=== PATIENT | male | born 1955 | race Caucasian/White ===

== ENCOUNTER 2016-09-13 07:20 | Inpatient (IN) | payer MEDICARE, MEDICAID ==
[2016-09-13] MEDS ORDERED: Clindamycin Phosphate in D5W 600 MG in Premix Bag 1 BAG IV ONE ×2 (08:04)
[2016-09-13] MEDS ORDERED: Levalbuterol HCl 1.25 MG/3 ML Neb NEB ONE (08:18)
[2016-09-13] MEDS ORDERED: LORazepam 2 MG/ML Syringe ONE (08:22)
[2016-09-13] MEDS ORDERED: methylPREDNISolone Sodium Succinate 125 MG/2 ML SDV IVPUSH SCH (08:30)
[2016-09-13] MEDS ORDERED: Levofloxacin/Dextrose 5%-Water 500 MG in Premix Bag 1 BAG IV SCH (08:30)
[2016-09-13] MEDS ORDERED: Clindamycin Phosphate in D5W 600 MG in Premix Bag 1 BAG IV SCH ×2 (08:30)
[2016-09-13] MEDS: Levalbuterol HCl 1.25 MG/3 ML Neb NEB SCH ×4 (08:30→20:11)
[2016-09-13] MEDS ORDERED: LORazepam 2 MG/ML Syringe IVPUSH ONE (08:45)
--- NOTE | 2016-09-13 08:51 | EDM.PDOC ---
ED HISTORY OF PRESENT ILLNESS - General Chief Complaint: Respiratory Problem Stated Complaint: aspiration pneumonia Time Seen by Provider: 09/13/16 07:50 Source of Information: Reports: EMS, Family, half-way records History Limitations: Reports: Altered mental status, Combative/threatening, Physical impairment - History of Present Illness INITIAL COMMENTS - FREE TEXT/NARRATIVE: Patient comes from a local snf with fever and trouble breathing. Family states he has had numerous bouts of aspiration pneumonia over the last few months. Patient has significant amount of fluid in his upper airway, and is in moderate resp. distress. He has cerebral palsy and is unable to communicate at this time. Symptom Onset Date: 09/13/16 Timing/Duration: Reports: Hour(s): Severity: severe Associated Symptoms (General): Reports: confusion, cough, fever/chills, shortness of breath - Related Data Allergies/ADRs: Allergies Allergy/AdvReac Type Severity Reaction Status Date / Time aspirin Allergy Cannot Verified 09/13/16 08:12 Remember ibuprofen Allergy Cannot Verified 09/13/16 08:12 Remember latex Allergy Rash Verified 09/13/16 08:12 sulfamethoxazole Allergy Cannot Verified 09/13/16 08:12 [From Bactrim] Remember trimethoprim [From Bactrim] Allergy Cannot Verified 09/13/16 08:12 Remember ED ROS GENERAL - Review of Systems Review Of Systems: Unable To Obtain ED EXAM, GENERAL - Physical Exam Exam: See Below Exam Limited By: Physical impairment General Appearance: anxious, severe distress Ears: normal external exam Nose: normal inspection Throat/Mouth: Normal inspection Head: atraumatic, normocephalic Respiratory/Chest: respiratory distress, crackles, rales, rhonchi Cardiovascular: normal peripheral pulses, regular rate, rhythm GI/Abdominal: normal bowel sounds Back Exam: normal inspection Extremities: limited range of motion Neurological: confused, disoriented Skin Exam: Cool, Diaphoretic Course - Orders/Labs/Meds Orders: Active Orders 24 hr Category Date Time Status Insert Urinary Catheter [OM.PC] Q24H Care 09/13/16 08:15 Ordered RT Aerosol Therapy [RC] ASDIRECTED Care 09/13/16 08:19 Active RT Aerosol Therapy [RC] ASDIRECTED Care 09/13/16 08:20 Active Suction Nasopharyngeal (RT) [RT Suction Artificial Care 09/13/16 08:22 Active Airway] [RC] ASDIRECTED Urinary Catheter Assessment [RC] ASDIRECTED Care 09/13/16 08:03 Active Chest 1V Frontal [CR] Stat Exams 09/13/16 08:01 Taken C-REACTIVE PROTEIN [CHEM] Stat Lab 09/13/16 08:01 Ordered COMPREHENSIVE METABOLIC PN,CMP [CHEM] Stat Lab 09/13/16 08:01 Ordered CULTURE BLOOD [BC] Stat Lab 09/13/16 08:03 Ordered CULTURE BLOOD [BC] Stat Lab 09/13/16 08:03 Ordered CULTURE SPUTUM + SMEAR [RM] Stat Lab 09/13/16 08:01 Ordered PRO B-TYPE NATRIUR PEPT,BNPPRO [CHEM] Stat Lab 09/13/16 08:01 Ordered UA W/MICROSCOPIC [URIN] Stat Lab 09/13/16 08:01 Uncollected Clindamycin Phosphate in D5W [Cleocin in D5W] 600 mg Med 09/13/16 08:04 Active Premix Bag 1 bag IV ONETIME Clindamycin Phosphate in D5W [Cleocin in D5W] 600 mg Med 09/13/16 08:30 Active Premix Bag 1 bag IV Q8H Levalbuterol HCl [Xopenex] Med 09/13/16 08:30 Active 1.25 mg NEB QIDRT Levofloxacin/Dextrose 5%-Water [Levaquin in D5W 500 MG/ Med 09/13/16 08:30 Active 100 ML] 500 mg Premix Bag 1 bag IV Q24H Sodium Chloride 0.9% [Normal Saline] 1,000 ml Med 09/13/16 08:45 Active IV ASDIRECTED methylPREDNISolone Sod Succ [Solu-MEDROL] Med 09/13/16 08:30 Active 125 mg IVPUSH Q8H Blood Culture x2 Reflex Set [OM.PC] Stat Oth 09/13/16 08:01 Ordered Medication Orders Clindamycin Phosphate 600 mg/ (Premix) 50 mls @ 50 mls/hr IV ONETIME ONE Stop: 09/13/16 09:03 Clindamycin Phosphate 600 mg/ (Premix) 50 mls @ 100 mls/hr IV Q8H [facility] Levofloxacin/Dextrose 500 mg/ (Premix) 100 mls @ 100 mls/hr IV Q24H [facility] Sodium Chloride (Normal Saline) 1,000 mls @ 75 mls/hr IV ASDIRECTED [facility] Levalbuterol HCl (Xopenex) 1.25 mg NEB QIDRT [facility] Methylprednisolone Sodium Succinate (Solu-Medrol) 125 mg IVPUSH Q8H [facility] Labs: Laboratory Tests 09/13/16 Range/Units 08:30 WBC 6.3 (5.0-10.0) 10^3/uL RBC 3.92 L (4.50-6.00) 10^6/uL Hgb 13.5 L (14.0-18.0) g/dL Hct 40.8 (40.0-54.0) % MCV 104.1 H (82.0-94.0) fL MCH 34.4 H (27.0-32.0) pg MCHC 33.1 (33.0-38.0) g/dL RDW Coeff of Oanh 14.6 (11.0-15.0) % Plt Count 180 (150-400) 10^3/uL Neut % (Auto) 74.8 (35-85) % Lymph % (Auto) 5.8 L (10-55) % [place] % (Auto) 17.9 H (0-16) % Eos % (Auto) 1.3 (0-5) % Baso % (Auto) 0.2 (0-3) % Neut # (Auto) 4.68 (1.80-7.00) 10^3/uL Lymph # (Auto) 0.36 L (1.00-4.80) 10^3/uL [place] # (Auto) 1.12 H (0.00-0.80) 10^3/uL Eos # (Auto) 0.08 (0.00-0.45) 10^3/uL Baso # (Auto) 0.01 10^3/uL Meds: Medications Generic Name Dose Route Start Last Admin Trade Name Freq PRN Reason Stop Dose Admin Clindamycin Phosphate 600 mg/ 50 mls @ 50 mls/hr 09/13/16 08:04 Premix IV 09/13/16 09:03 ONETIME ONE Clindamycin Phosphate 600 mg/ 50 mls @ 100 mls/hr 09/13/16 08:30 Premix IV Q8H [facility] Levofloxacin/Dextrose 500 mg/ 100 mls @ 100 mls/hr 09/13/16 08:30 Premix IV Q24H [facility] Sodium Chloride 1,000 mls @ 75 mls/hr 09/13/16 08:45 Normal Saline IV ASDIRECTED [facility] Levalbuterol HCl 1.25 mg 09/13/16 08:30 Xopenex NEB QIDRT [facility] Methylprednisolone Sodium Succinate 125 mg 09/13/16 08:30 Solu-Medrol IVPUSH Q8H [facility] Discontinued Medications Generic Name Dose Route Start Last Admin Trade Name Freq PRN Reason Stop Dose Admin Levalbuterol HCl 1.25 mg 09/13/16 08:18 09/13/16 08:22 Xopenex NEB 09/13/16 08:19 1.25 mg ONETIME ONE Administration Lorazepam Confirm 09/13/16 08:22 Ativan Administered 09/13/16 08:23 Dose 2 mg .ROUTE .STK-MED ONE Departure - Departure Time of Disposition: 08:53 Disposition: Admitted As Inpatient 66 Condition: serious Clinical Impression: Aspirated gastric contents in lower respiratory tract Forms: ED Department Discharge Additional Instructions: Please us this as my admission H&P Care Plan Goals: Will admit to acute care with antibiotics and supportive care. Patient is a DNR , and this is confirmed with the family. - My Orders Last 24 Hours: My Active Orders 09/13/16 08:01 Chest 1V Frontal [CR] Stat C-REACTIVE PROTEIN [CHEM] Stat COMPREHENSIVE METABOLIC PN,CMP [CHEM] Stat CULTURE SPUTUM + SMEAR [RM] Stat PRO B-TYPE NATRIUR PEPT,BNPPRO [CHEM] Stat UA W/MICROSCOPIC [URIN] Stat Blood Culture x2 Reflex Set [OM.PC] Stat 09/13/16 08:03 Urinary Catheter Assessment [RC] ASDIRECTED CULTURE BLOOD [BC] Stat CULTURE BLOOD [BC] Stat 09/13/16 08:04 Clindamycin Phosphate in D5W [Cleocin in D5W] 600 mg Premix Bag 1 bag IV ONETIME 09/13/16 08:15 Insert Urinary Catheter [OM.PC] Q24H 09/13/16 08:19 RT Aerosol Therapy [RC] ASDIRECTED 09/13/16 08:20 RT Aerosol Therapy [RC] ASDIRECTED 09/13/16 08:22 Suction Nasopharyngeal (RT) [RT Suction Artificial Airway] [RC] ASDIRECTED 09/13/16 08:30 Clindamycin Phosphate in D5W [Cleocin in D5W] 600 mg Premix Bag 1 bag IV Q8H Levalbuterol HCl [Xopenex] 1.25 mg NEB QIDRT Levofloxacin/Dextrose 5%-Water [Levaquin in D5W 500 MG/100 ML] 500 mg Premix Bag 1 bag IV Q24H methylPREDNISolone Sod Succ [Solu-MEDROL] 125 mg IVPUSH Q8H 09/13/16 08:45 Sodium Chloride 0.9% [Normal Saline] 1,000 ml IV ASDIRECTED - Assessment/Plan Last 24 Hours: My Active Orders 09/13/16 08:01 Chest 1V Frontal [CR] Stat C-REACTIVE PROTEIN [CHEM] Stat COMPREHENSIVE METABOLIC PN,CMP [CHEM] Stat CULTURE SPUTUM + SMEAR [RM] Stat PRO B-TYPE NATRIUR PEPT,BNPPRO [CHEM] Stat UA W/MICROSCOPIC [URIN] Stat Blood Culture x2 Reflex Set [OM.PC] Stat 09/13/16 08:03 Urinary Catheter Assessment [RC] ASDIRECTED CULTURE BLOOD [BC] Stat CULTURE BLOOD [BC] Stat 09/13/16 08:04 Clindamycin Phosphate in D5W [Cleocin in D5W] 600 mg Premix Bag 1 bag IV ONETIME 09/13/16 08:15 Insert Urinary Catheter [OM.PC] Q24H 09/13/16 08:19 RT Aerosol Therapy [RC] ASDIRECTED 09/13/16 08:20 RT Aerosol Therapy [RC] ASDIRECTED 09/13/16 08:22 Suction Nasopharyngeal (RT) [RT Suction Artificial Airway] [RC] ASDIRECTED 09/13/16 08:30 Clindamycin Phosphate in D5W [Cleocin in D5W] 600 mg Premix Bag 1 bag IV Q8H Levalbuterol HCl [Xopenex] 1.25 mg NEB QIDRT Levofloxacin/Dextrose 5%-Water [Levaquin in D5W 500 MG/100 ML] 500 mg Premix Bag 1 bag IV Q24H methylPREDNISolone Sod Succ [Solu-MEDROL] 125 mg IVPUSH Q8H 09/13/16 08:45 Sodium Chloride 0.9% [Normal Saline] 1,000 ml IV ASDIRECTED
[2016-09-13] MEDS ORDERED: Acetaminophen 650 MG Supp RECTAL ONE (08:56)
[2016-09-13 09:07] LABS: CHLORIDE,CL 105 mEq/L (98-106); SODIUM,NA 143 mEq/L (136-145)
[2016-09-13] MEDS ORDERED: Acetaminophen 650 MG Supp ONE (09:09)
[2016-09-13] MEDS ORDERED: Sodium Chloride 0.9% 1,000 ML ONE (09:15)
[2016-09-13] MEDS ORDERED: Aluminum Hydroxide/Magnesium Hydroxide/Simethicone Susp 30 ML Cup PO PRN (09:49)
[2016-09-13] MEDS ORDERED: HYDROCODONE PO PRN (09:49)
[2016-09-13] MEDS ORDERED: LORazepam 0.5 MG Tab PO PRN (09:49)
[2016-09-13] MEDS ORDERED: ACETAMINOPHEN PO PRN (09:49)
[2016-09-13] MEDS ORDERED: Non-Formulary Medication 1 Each (Ondansetron Hcl 4 MG) PO PRN (09:49)
[2016-09-13] MEDS ORDERED: LACTULOSE PO PRN (09:49)
[2016-09-13] MEDS ORDERED: Acetaminophen 650 MG Supp RECTAL PRN (09:56)
[2016-09-13] MEDS ORDERED: Ondansetron 4 MG/2 ML SDV IV PRN (09:56)
[2016-09-13] MEDS ORDERED: Enoxaparin 30 MG/0.3 ML Syringe SUBCUT SCH (10:00)
[2016-09-13] MEDS: Sodium Chloride 0.9% 1,000 ML IV SCH ×2 (10:10→20:12)
[2016-09-13] MEDS: LORazepam 2 MG/ML Syringe IVPUSH PRN (12:22)
--- NOTE | 2016-09-13 12:28 | PCM.PN ---
- General Info Date of Service: 09/13/16 (I spoke at length with the family. I informed them that the patiens condition is in decline over the last few hours and it is likely he will not improve without mechanical ventilation. The family stated he specifically stated menay times that he didnt want that. Will draw ABG to asses resp. status) Functional Status: Reports: pain controlled - Review of Systems General: Reports: Weakness, Fatigue HEENT: Reports: no symptoms Pulmonary: Reports: shortness of breath, sputum, wheezing Cardiovascular: Reports: No Symptoms Gastrointestinal: Reports: No symptoms Genitourinary: Reports: no symptoms Musculoskeletal: Reports: no symptoms Skin: Reports: no symptoms Neurological: Reports: Confusion Psychiatric: Reports: confusion, agitation Systems Review Comment:: Patient has declined neurologically over the last few hours, and is no longer following commands, or responding to verbal or touch stimuli. - Patient Data Vitals - most recent: Last Vital Signs Temp 99.2 F 09/13/16 10:03 Pulse 141 H 09/13/16 10:03 Resp 18 09/13/16 10:03 BP 118/66 09/13/16 10:03 Pulse Ox 94 L 09/13/16 10:03 Weight - most recent: 165 lb 4.8 oz Lab Results last 24 hrs: Laboratory Results - last 24 hr 09/13/16 Range/Units 11:03 Urine Color Dark yellow (YELLOW) Urine Appearance Clear (CLEAR) Urine pH 6.0 (4.5-8.0) Ur Specific [place] 1.016 (1.003-1.020) Urine Protein 30 H (NEGATIVE) mg/dL Urine Glucose (UA) 100 H (NEGATIVE) mg/dL Urine Ketones Trace H (NEGATIVE) mg/dL Urine Occult Blood Trace-intact H (NEGATIVE) Urine Nitrite Negative (NEGATIVE) Urine Bilirubin Moderate H (NEGATIVE) Urine Urobilinogen >=8.0 H (0.2-1.0) EU/dL Ur Leukocyte Esterase Negative (NEGATIVE) Urine RBC 0-5 (0-5) /HPF Urine WBC 0-5 (0-5) /HPF Urine Bacteria Few H (NOT SEEN) /HPF Urine Mucus Moderate H (NOT SEEN) /HPF Med Orders - Current: Current Medications Acetaminophen (Tylenol) 650 mg RECTAL Q4H PRN PRN Reason: Mild pain/fever Enoxaparin Sodium (Lovenox) 30 mg SUBCUT Q24H [facility] Clindamycin Phosphate 600 mg/ (Premix) 50 mls @ 100 mls/hr IV Q8H [facility] Last Admin: 09/13/16 10:11 Dose: Not Given Levofloxacin/Dextrose 500 mg/ (Premix) 100 mls @ 100 mls/hr IV Q24H [facility] Last Admin: 09/13/16 09:05 Dose: 100 mls/hr Sodium Chloride (Normal Saline) 1,000 mls @ 75 mls/hr IV ASDIRECTED [facility] Last Admin: 09/13/16 10:10 Dose: 75 mls/hr Levalbuterol HCl (Xopenex) 1.25 mg NEB QIDRT [facility] Last Admin: 09/13/16 08:30 Dose: 1.25 mg Lorazepam (Ativan) 1 mg IVPUSH Q8H PRN PRN Reason: Anxiety Last Admin: 09/13/16 12:22 Dose: 1 mg Methylprednisolone Sodium Succinate (Solu-Medrol) 125 mg IVPUSH Q8H [facility] Last Admin: 09/13/16 09:03 Dose: 125 mg Ondansetron HCl (Zofran) 4 mg IV Q4H PRN PRN Reason: Nausea/Vomiting Polyethylene Glycol (Miralax) 17 gm PO DAILY [facility] Discontinued Medications Acetaminophen (Tylenol) Confirm Administered Dose 650 mg .ROUTE .STK-MED ONE Stop: 09/13/16 09:10 Last Admin: 09/13/16 10:11 Dose: Not Given Acetaminophen (Tylenol) 650 mg RECTAL NOW ONE Stop: 09/13/16 08:57 Al Hydroxide/Mg Hydroxide (Mag-Al Plus) 30 ml PO QID PRN PRN Reason: Abdominal Pain Divalproex Sodium (Depakote Er) 750 mg PO BEDTIME [facility] Duloxetine HCl (Cymbalta) 30 mg PO DAILY [facility] Gabapentin (Neurontin) 300 mg PO TID [facility] Clindamycin Phosphate 600 mg/ (Premix) 50 mls @ 50 mls/hr IV ONETIME ONE Stop: 09/13/16 09:03 Last Admin: 09/13/16 10:09 Dose: 50 mls/hr Sodium Chloride (Normal Saline) Confirm Administered Dose 1,000 mls @ as directed .ROUTE .STK-MED ONE Stop: 09/13/16 09:16 Last Admin: 09/13/16 11:02 Dose: Not Given Levalbuterol HCl (Xopenex) 1.25 mg NEB ONETIME ONE Stop: 09/13/16 08:19 Last Admin: 09/13/16 08:22 Dose: 1.25 mg Lorazepam (Ativan) Confirm Administered Dose 2 mg .ROUTE .STK-MED ONE Stop: 09/13/16 08:23 Last Admin: 09/13/16 10:11 Dose: Not Given Lorazepam (Ativan) 1 mg IVPUSH ONETIME ONE Stop: 09/13/16 08:46 Lorazepam (Ativan) 0.5 mg PO BID PRN PRN Reason: Anxiety Non-Formulary Medication (Baclofen [Baclofen]) 90 mg PO TID [facility] Non-Formulary Medication (Duloxetine [Cymbalta]) 60 mg PO BEDTIME [facility] Non-Formulary Medication (Divalproex Sodium [Depakote Er]) 500 mg PO DAILY [facility] Non-Formulary Medication (Hydrocodone/Acetaminophen [[place] 10-325 Tablet]) 1 tab PO BID PRN PRN Reason: Pain Non-Formulary Medication (Lactulose [Lactulose]) 30 ml PO DAILY PRN PRN Reason: Constipation Non-Formulary Medication (Ondansetron Hcl) 4 mg PO Q4H PRN PRN Reason: Nausea Non-Formulary Medication (Azathioprine [Imuran]) 150 mg PO DAILY [facility] - Problem List Review Problem List Initiated/Reviewed/Updated: Yes - My Orders Last 24 Hours: My Active Orders 09/13/16 08:30 CULTURE SPUTUM + SMEAR [RM] Routine 09/13/16 08:40 CULTURE BLOOD [BC] Stat 09/13/16 08:50 CULTURE BLOOD [BC] Stat 09/13/16 09:56 Respiratory Care Assess and Treatment [CONS] Routine Acetaminophen [Tylenol] 650 mg RECTAL Q4H PRN LORazepam [Ativan] 1 mg IVPUSH Q8H PRN Ondansetron [Zofran] 4 mg IV Q4H PRN Resuscitation Status Routine 09/13/16 10:00 Enoxaparin [Lovenox] 30 mg SUBCUT Q24H Comfort Measures [OM.PC] Routine 09/13/16 10:03 Patient Status [ADT] Routine Oxygen Therapy [RC] PRN VTE/DVT Education [RC] PER UNIT ROUTINE Vital Signs [RC] 0000,0400,0800,1200,1600,2000 09/13/16 10:56 UA W/O MICROSCOPIC [URIN] Routine 09/13/16 10:57 Blood Culture x2 Reflex Set [OM.PC] Stat 09/13/16 12:23 ABG [BLOOD GAS ARTERIAL] [BG] Routine 09/13/16 Lunch Nothing per Oral Now Diet [DIET] 09/14/16 05:11 CBC WITH AUTO DIFF [HEME] AM COMPREHENSIVE METABOLIC PN,CMP [CHEM] AM 09/14/16 08:00 Polyethylene Glycol 3350 [MiraLAX] 17 gm PO DAILY
[2016-09-13 12:38] LABS: O2 DELIVERY DEVICE NASAL CANNULA; PCO2 ARTERIAL 47 mm/Hg0 (35-45); PO2 ARTERIAL 126 mm/Hg (80-100)
[2016-09-13 12:39] LABS: BICARBONATE,ARTERIAL 25.7 mm/L (22.0-26.0); O2 SATURATION ARTERIAL 99 % (95-98)
[2016-09-13] MEDS ORDERED: BACLOFEN PO SCH (14:00)
[2016-09-13] MEDS ORDERED: Gabapentin 300 MG Cap PO SCH (14:00)
[2016-09-13] MEDS: Enoxaparin 40 MG/0.4 ML Syringe SUBCUT SCH (15:20)
[2016-09-13] MEDS: methylPREDNISolone Sodium Succinate 125 MG/2 ML SDV IVPUSH SCH ×2 (15:23→23:35)
[2016-09-13] MEDS: Clindamycin Phosphate in D5W 600 MG in Premix Bag 1 BAG IV SCH ×4 (15:25→23:28)
[2016-09-13] MEDS ORDERED: Non-Formulary Medication 1 Each (Duloxetine [Cymbalta] 60 MG) PO SCH (20:00)
[2016-09-13] MEDS ORDERED: Divalproex Sodium 250 MG Tab.ER PO SCH (20:00)
[2016-09-13] MEDS: HYDROmorphone 1 MG/ML Syringe IVPUSH PRN (20:15)
[2016-09-14] MEDS: LORazepam 2 MG/ML Syringe IVPUSH PRN ×2 (03:21→09:28)
[2016-09-14 07:34] LABS: CHLORIDE,CL 109 mEq/L (98-106); SODIUM,NA 143 mEq/L (136-145)
[2016-09-14] MEDS: methylPREDNISolone Sodium Succinate 125 MG/2 ML SDV IVPUSH SCH ×2 (07:43→21:05)
[2016-09-14] MEDS: Clindamycin Phosphate in D5W 600 MG in Premix Bag 1 BAG IV SCH ×6 (07:47→23:13)
[2016-09-14] MEDS ORDERED: DIVALPROEX SODIUM 500 MG PO SCH (08:00)
[2016-09-14] MEDS ORDERED: Polyethylene Glycol 3350 Powder 17 GM Packet PO SCH (08:00)
[2016-09-14] MEDS ORDERED: DULoxetine 30 MG Cap PO SCH (08:00)
[2016-09-14] MEDS ORDERED: AZATHIOPRINE 150 MG PO SCH (08:00)
[2016-09-14] MEDS: Levofloxacin/Dextrose 5%-Water 500 MG in Premix Bag 1 BAG IV SCH (08:34)
[2016-09-14] MEDS: Levalbuterol HCl 1.25 MG/3 ML Neb NEB SCH (09:09)
[2016-09-14] MEDS: DULoxetine 30 MG Cap PO SCH ×2 (09:48→21:16)
[2016-09-14] MEDS: Gabapentin 300 MG Cap PO SCH ×3 (09:49→21:16)
[2016-09-14] MEDS: Divalproex Sodium 250 MG Tab.ER PO SCH ×2 (09:49→21:16)
[2016-09-14] MEDS: Pantoprazole 40 MG Vial IVPUSH SCH (09:54)
[2016-09-14] MEDS: Albuterol 0.083% 2.5 MG/3 ML Neb Soln INH SCH ×3 (13:15→21:17)
[2016-09-14] MEDS: Sodium Chloride 0.9% 1,000 ML IV SCH ×2 (15:36→23:11)
[2016-09-14] MEDS: Enoxaparin 40 MG/0.4 ML Syringe SUBCUT SCH (15:40)
--- NOTE | 2016-09-14 22:45 | PCM.PN ---
- General Info Date of Service: 09/14/16 Admission Dx/Problem (Free Text): Aspiration Pneumonia Functional Status: Reports: pain controlled. Denies: tolerating diet, ambulating - Review of Systems General: Reports: Weakness, Fatigue. Denies: Fever HEENT: Reports: rhinitis, other (mattery drainage from right eye). Denies: sore throat Pulmonary: Reports: shortness of breath, cough Cardiovascular: Denies: Chest Pain, Edema, Lightheadedness Gastrointestinal: Denies: Abdominal pain, Nausea, Vomiting Musculoskeletal: Reports: other (muscle spasms in extremities) Skin: Reports: no symptoms Neurological: Reports: Weakness, Other (history of CP, unable to stand ) - Patient Data Vitals - most recent: Last Vital Signs Temp 98.5 F 09/14/16 19:50 Pulse 114 H 09/14/16 19:50 Resp 20 09/14/16 19:50 BP 115/66 09/14/16 19:50 Pulse Ox 97 09/14/16 19:50 Weight - most recent: 165 lb 4.8 oz I&O - last 24 hours: Intake & Output 09/14/16 09/14/16 09/14/16 06:59 14:59 22:59 Intake Total 50 1050 Output Total 175 Balance 50 1050 -175 Lab Results last 24 hrs: Laboratory Results - last 24 hr 09/14/16 09/14/16 Range/Units 07:00 07:05 WBC 10.6 H (5.0-10.0) 10^3/uL RBC 3.21 L (4.50-6.00) 10^6/uL Hgb 11.1 L (14.0-18.0) g/dL Hct 33.9 L (40.0-54.0) % MCV 105.6 H (82.0-94.0) fL MCH 34.6 H (27.0-32.0) pg MCHC 32.7 L (33.0-38.0) g/dL RDW Coeff of Oanh 14.9 (11.0-15.0) % Plt Count 142 L (150-400) 10^3/uL Add Manual Diff Yes Neutrophils % (Manual) 58 (35-85) % Band Neutrophils % 40 H (0-5) % Lymphocytes % (Manual) 1 L (21-55) % Monocytes % (Manual) 1 L (2-12) % Absolute Neutrophils 10.39 H (1.80-7.00) 10^3/uL Lymphocytes # (Manual) 0.11 L (1.00-4.80) 10^3/uL Monocytes # (Manual) 0.11 (0.00-0.80) 10^3/uL Sodium 143 (136-145) mEq/L Potassium 4.9 D (3.5-5.0) mEq/L Chloride 109 H (98-106) mEq/L Carbon Dioxide 24 (21-32) mmol/L BUN 31 H D (7-18) mg/dL Creatinine 1.2 (0.7-1.3) mg/dL Est Cr Clr Drug Dosing 58.34 mL/min Estimated GFR (MDRD) > 60 (>=60) mL/min Glucose 138 H D (75-99) mg/dL Calcium 8.4 (8.4-10.1) mg/dL Total Bilirubin 0.5 (0.0-1.0) mg/dL AST 17 (15-37) U/L ALT 9 L (12-78) U/L Alkaline Phosphatase 51 (46-116) U/L Total Protein 6.4 (6.4-8.2) g/dL Albumin 2.5 L (3.4-5.0) g/dL Med Orders - Current: Current Medications Acetaminophen (Tylenol) 650 mg RECTAL Q4H PRN PRN Reason: Mild pain/fever Last Admin: 09/13/16 20:12 Dose: 650 mg Albuterol (Proventil Neb Soln) 2.5 mg INH QIDRT COUNTS INCLUDE 234 BEDS AT [facility] Last Admin: 09/14/16 21:17 Dose: 2.5 mg Divalproex Sodium (Depakote Er) [facility] [place] Last Admin: 09/14/16 09:49 Dose: 500 mg Divalproex Sodium (Depakote Er) 750 mg PO BEDTIME COUNTS INCLUDE 234 BEDS AT [facility] Last Admin: 09/14/16 21:16 Dose: 750 mg Duloxetine HCl (Cymbalta) 30 mg PO QAM COUNTS INCLUDE 234 BEDS AT [facility] Last Admin: 09/14/16 09:48 Dose: 30 mg Duloxetine HCl (Cymbalta) 60 mg PO BEDTIME COUNTS INCLUDE 234 BEDS AT [facility] Last Admin: 09/14/16 21:16 Dose: 60 mg Enoxaparin Sodium (Lovenox) 40 mg SUBCUT Q24H COUNTS INCLUDE 234 BEDS AT THE [facility] Last Admin: 09/14/16 15:40 Dose: 40 mg Gabapentin (Neurontin) 300 mg PO TID COUNTS INCLUDE 234 BEDS AT [facility] Last Admin: 09/14/16 21:16 Dose: 300 mg Hydromorphone HCl (Dilaudid) 0.5 mg IVPUSH Q2H PRN PRN Reason: Pain Last Admin: 09/13/16 20:15 Dose: 0.5 mg Sodium Chloride (Normal Saline) 1,000 mls @ 75 mls/hr IV ASDIRECTED COUNTS INCLUDE 234 BEDS AT THE [facility] Last Admin: 09/14/16 15:36 Dose: 75 mls/hr Levofloxacin/Dextrose 500 mg/ (Premix) 100 mls @ 100 mls/hr IV Q24H COUNTS INCLUDE 234 BEDS AT THE [facility] Last Admin: 09/14/16 08:34 Dose: 100 mls/hr Clindamycin Phosphate 600 mg/ (Premix) 50 mls @ 100 mls/hr IV Q8H COUNTS INCLUDE 234 BEDS AT THE [facility] Last Admin: 09/14/16 15:37 Dose: 100 mls/hr Lorazepam (Ativan) 1 mg IVPUSH Q8H PRN PRN Reason: Anxiety Last Admin: 09/14/16 09:28 Dose: 1 mg Methylprednisolone Sodium Succinate (Solu-Medrol) 125 mg IVPUSH Q12H COUNTS INCLUDE 234 BEDS AT THE [facility] Last Admin: 09/14/16 21:05 Dose: 125 mg Ondansetron HCl (Zofran) 4 mg IV Q4H PRN PRN Reason: Nausea/Vomiting Pantoprazole Sodium (Protonix Iv) 40 mg IVPUSH Q24H COUNTS INCLUDE 234 BEDS AT THE [facility] Last Admin: 09/14/16 09:54 Dose: 40 mg Discontinued Medications Acetaminophen (Tylenol) Confirm Administered Dose 650 mg .ROUTE .STK-MED ONE Stop: 09/13/16 09:10 Last Admin: 09/13/16 10:11 Dose: Not Given Acetaminophen (Tylenol) 650 mg RECTAL NOW ONE Stop: 09/13/16 08:57 Last Admin: 09/13/16 08:56 Dose: 650 mg Al Hydroxide/Mg Hydroxide (Mag-Al Plus) 30 ml PO QID PRN PRN Reason: Abdominal Pain Divalproex Sodium (Depakote Er) 750 mg PO BEDTIME COUNTS INCLUDE 234 BEDS AT THE [facility] Duloxetine HCl (Cymbalta) 30 mg PO DAILY COUNTS INCLUDE 234 BEDS AT THE [facility] Enoxaparin Sodium (Lovenox) 30 mg SUBCUT Q24H COUNTS INCLUDE 234 BEDS AT THE [facility] Last Admin: 09/13/16 14:45 Dose: Not Given Gabapentin (Neurontin) 300 mg PO TID COUNTS INCLUDE 234 BEDS AT [facility] Clindamycin Phosphate 600 mg/ (Premix) 50 mls @ 50 mls/hr IV ONETIME ONE Stop: 09/13/16 09:03 Last Admin: 09/13/16 10:09 Dose: 50 mls/hr Clindamycin Phosphate 600 mg/ (Premix) 50 mls @ 100 mls/hr IV Q8H COUNTS INCLUDE 234 BEDS AT THE [facility] Last Admin: 09/13/16 10:11 Dose: Not Given Levofloxacin/Dextrose 500 mg/ (Premix) 100 mls @ 100 mls/hr IV Q24H COUNTS INCLUDE 234 BEDS AT THE [facility] Last Admin: 09/13/16 09:05 Dose: 100 mls/hr Sodium Chloride (Normal Saline) Confirm Administered Dose 1,000 mls @ as directed .ROUTE .STK-MED ONE Stop: 09/13/16 09:16 Last Admin: 09/13/16 11:02 Dose: Not Given Levalbuterol HCl (Xopenex) 1.25 mg NEB ONETIME ONE Stop: 09/13/16 08:19 Last Admin: 09/13/16 08:22 Dose: 1.25 mg Levalbuterol HCl (Xopenex) 1.25 mg NEB QIDRT [facility] Stop: 09/14/16 11:00 Last Admin: 09/14/16 09:09 Dose: 1.25 mg Lorazepam (Ativan) Confirm Administered Dose 2 mg .ROUTE .STK-MED ONE Stop: 09/13/16 08:23 Last Admin: 09/13/16 10:11 Dose: Not Given Lorazepam (Ativan) 1 mg IVPUSH ONETIME ONE Stop: 09/13/16 08:46 Last Admin: 09/13/16 08:45 Dose: 1 mg Lorazepam (Ativan) 0.5 mg PO BID PRN PRN Reason: Anxiety Methylprednisolone Sodium Succinate (Solu-Medrol) 125 mg IVPUSH Q8H COUNTS INCLUDE 234 BEDS AT THE [facility] Last Admin: 09/13/16 09:03 Dose: 125 mg Methylprednisolone Sodium Succinate (Solu-Medrol) 125 mg IVPUSH Q8H COUNTS INCLUDE 234 BEDS AT THE [facility] Last Admin: 09/14/16 07:43 Dose: 125 mg Non-Formulary Medication (Baclofen [Baclofen]) 90 mg PO TID [facility] Non-Formulary Medication (Duloxetine [Cymbalta]) 60 mg PO BEDTIME [facility] Non-Formulary Medication (Divalproex Sodium [Depakote Er]) 500 mg PO DAILY [facility] Non-Formulary Medication (Hydrocodone/Acetaminophen [[place] 10-325 Tablet]) 1 tab PO BID PRN PRN Reason: Pain Non-Formulary Medication (Lactulose [Lactulose]) 30 ml PO DAILY PRN PRN Reason: Constipation Non-Formulary Medication (Ondansetron Hcl) 4 mg PO Q4H PRN PRN Reason: Nausea Non-Formulary Medication (Azathioprine [Imuran]) 150 mg PO DAILY [facility] Polyethylene Glycol (Miralax) 17 gm PO DAILY [facility] - Exam Quality Assessment: supplemental oxygen General: alert, other (does answer some questions appropriately, more confused than his norm) Neck: supple Lungs: Decreased breath sounds, Rhonchi Cardiovascular: Regular Rate, Regular Rhythm Abdomen: bowel sounds present, soft, no tenderness Extremities: no edema Skin: warm, dry - Problem List & Annotations (1) Aspirated gastric contents in lower respiratory tract SNOMED Code(s): 285558411 Code(s): GBI1377 - Status: Acute Priority: High Current Visit: Yes (2) Comfort measures only status SNOMED Code(s): 50509567680679 Code(s): Z51.5 - ENCOUNTER FOR PALLIATIVE CARE Status: Acute Priority: High Current Visit: Yes - Problem List Review Problem List Initiated/Reviewed/Updated: Yes - My Orders Last 24 Hours: My Active Orders 09/14/16 08:00 Pantoprazole [ProTONIX IV] 40 mg IVPUSH Q24H 09/14/16 08:57 Head wo Cont [CT] Stat 09/14/16 20:00 methylPREDNISolone Sod Succ [Solu-MEDROL] 125 mg IVPUSH Q12H 09/15/16 05:11 BASIC METABOLIC PANEL,BMP [CHEM] AM C-REACTIVE PROTEIN [CHEM] AM CBC WITH AUTO DIFF [HEME] AM - Assessment Assessment:: Aspiration Pneumonia - Plan Plan:: Patient does answer some questions appropriately today. Most information today gleaned from family. Prior to this winter, patient was alert, conversive and doing well. Did have an aide that would come in to his 4x per day but over the last few months, his weakness increased and has had 2 falls. Do not recall any specific head trauma however they do relate he had a definite change of status since Tuesday night after admission to the senior care. Had been in the hospital in [place] for 4 weeks and has regressed during that time. Has had several issues now with aspiration pneumonia but patient has insisted on being provided with a fairly regular diet despite it causing him problems. Sister relates that he did pass a swallow study in [place]. Labs today are stable. WBC 10.2. Hemoglobin stable. Initial blood cultures negative. Will repeat labs in am. Obtain a CT scan of the head today and follow. Hold oral intake at this time. Possibly initiate fluids tomorrow. Family aware and agrees with plan.
[2016-09-15] MEDS: methylPREDNISolone Sodium Succinate 125 MG/2 ML SDV IVPUSH SCH (07:37)
[2016-09-15] MEDS: Pantoprazole 40 MG Vial IVPUSH SCH (07:38)
[2016-09-15] MEDS: DULoxetine 30 MG Cap PO SCH ×2 (07:39→19:36)
[2016-09-15] MEDS: Gabapentin 300 MG Cap PO SCH ×3 (07:39→19:36)
[2016-09-15] MEDS: Divalproex Sodium 250 MG Tab.ER PO SCH ×2 (07:39→19:36)
[2016-09-15] MEDS: Levofloxacin/Dextrose 5%-Water 500 MG in Premix Bag 1 BAG IV SCH (07:41)
[2016-09-15] MEDS: Clindamycin Phosphate in D5W 600 MG in Premix Bag 1 BAG IV SCH ×4 (07:43→15:47)
[2016-09-15 07:55] LABS: CHLORIDE,CL 111 mEq/L (98-106); SODIUM,NA 143 mEq/L (136-145)
[2016-09-15] MEDS ORDERED: Scopolamine 1.5 MG Transdermal Patch TOP SCH (08:00)
[2016-09-15] MEDS: Albuterol 0.083% 2.5 MG/3 ML Neb Soln INH SCH ×4 (09:14→21:31)
--- NOTE | 2016-09-15 09:16 | PCM.PN ---
- General Info Date of Service: 09/15/16 Admission Dx/Problem (Free Text): Aspiration Pneumonia Functional Status: Reports: pain controlled. Denies: tolerating diet, ambulating - Review of Systems General: Reports: Weakness. Denies: Fever HEENT: Reports: other (eye drainage). Denies: ear pain, sore throat Pulmonary: Denies: shortness of breath, cough, wheezing Cardiovascular: Denies: Chest Pain, Edema, Lightheadedness Gastrointestinal: Denies: Nausea, Vomiting Genitourinary: Reports: no symptoms Musculoskeletal: Reports: no symptoms Skin: Reports: no symptoms - Patient Data Vitals - most recent: Last Vital Signs Temp 97.6 F 09/15/16 04:00 Pulse 104 H 09/15/16 04:00 Resp 20 09/15/16 04:00 BP 110/72 09/15/16 04:00 Pulse Ox 92 L 09/15/16 04:00 Weight - most recent: 165 lb 4.8 oz I&O - last 24 hours: Intake & Output 09/14/16 09/15/16 09/15/16 22:59 06:59 14:59 Intake Total 50 619 Output Total 175 Balance -125 619 Lab Results last 24 hrs: Laboratory Results - last 24 hr 09/15/16 09/15/16 Range/Units 07:20 07:20 WBC 4.6 L (5.0-10.0) 10^3/uL RBC 2.63 L (4.50-6.00) 10^6/uL Hgb 9.1 L (14.0-18.0) g/dL Hct 28.1 L (40.0-54.0) % MCV 106.8 H (82.0-94.0) fL MCH 34.6 H (27.0-32.0) pg MCHC 32.4 L (33.0-38.0) g/dL RDW Coeff of Oanh 14.8 (11.0-15.0) % Plt Count 110 L (150-400) 10^3/uL Add Manual Diff Yes Neutrophils % (Manual) 87 H (35-85) % Band Neutrophils % 9 H (0-5) % Lymphocytes % (Manual) 3 L (21-55) % Monocytes % (Manual) 1 L (2-12) % Absolute Neutrophils 4.42 (1.80-7.00) 10^3/uL Lymphocytes # (Manual) 0.14 L (1.00-4.80) 10^3/uL Monocytes # (Manual) 0.05 (0.00-0.80) 10^3/uL Sodium 143 (136-145) mEq/L Potassium 4.2 (3.5-5.0) mEq/L Chloride 111 H (98-106) mEq/L Carbon Dioxide 24 (21-32) mmol/L BUN 36 H (7-18) mg/dL Creatinine 0.8 (0.7-1.3) mg/dL Est Cr Clr Drug Dosing 87.50 mL/min Estimated GFR (MDRD) > 60 (>=60) mL/min Glucose 121 H (75-99) mg/dL Calcium 8.2 L (8.4-10.1) mg/dL C-Reactive Protein 6.1 H (0.2-0.8) mg/dL Med Orders - Current: Current Medications Acetaminophen (Tylenol) 650 mg RECTAL Q4H PRN PRN Reason: Mild pain/fever Last Admin: 09/13/16 20:12 Dose: 650 mg Albuterol (Proventil Neb Soln) 2.5 mg INH QIDRT [facility] Last Admin: 09/14/16 21:17 Dose: 2.5 mg Divalproex Sodium (Depakote Er) 500 mg PO QAM [facility] Last Admin: 09/15/16 07:39 Dose: 500 mg Divalproex Sodium (Depakote Er) 750 mg PO BEDTIME [facility] Last Admin: 09/14/16 21:16 Dose: 750 mg Duloxetine HCl (Cymbalta) 30 mg PO QAM [facility] Last Admin: 09/15/16 07:39 Dose: 30 mg Duloxetine HCl (Cymbalta) 60 mg PO BEDTIME [facility] Last Admin: 09/14/16 21:16 Dose: 60 mg Enoxaparin Sodium (Lovenox) 40 mg SUBCUT Q24H [facility] Last Admin: 09/14/16 15:40 Dose: 40 mg Gabapentin (Neurontin) 300 mg PO TID [facility] Last Admin: 09/15/16 07:39 Dose: 300 mg Hydromorphone HCl (Dilaudid) 0.5 mg IVPUSH Q2H PRN PRN Reason: Pain Last Admin: 09/13/16 20:15 Dose: 0.5 mg Sodium Chloride (Normal Saline) 1,000 mls @ 75 mls/hr IV ASDIRECTED [facility] Last Admin: 09/14/16 23:11 Dose: 75 mls/hr Clindamycin Phosphate 600 mg/ (Premix) 50 mls @ 100 mls/hr IV Q8H [facility] Last Admin: 09/15/16 07:43 Dose: 100 mls/hr Lorazepam (Ativan) 1 mg IVPUSH Q8H PRN PRN Reason: Anxiety Last Admin: 09/14/16 09:28 Dose: 1 mg Methylprednisolone Sodium Succinate (Solu-Medrol) 125 mg IVPUSH Q24H [facility] Ondansetron HCl (Zofran) 4 mg IV Q4H PRN PRN Reason: Nausea/Vomiting Pantoprazole Sodium (Protonix Iv) 40 mg IVPUSH Q24H [facility] Last Admin: 09/15/16 07:38 Dose: 40 mg Scopolamine (Transderm-Scop) 1.5 mg TOP Q72H [facility] Discontinued Medications Acetaminophen (Tylenol) Confirm Administered Dose 650 mg .ROUTE .STK-MED ONE Stop: 09/13/16 09:10 Last Admin: 09/13/16 10:11 Dose: Not Given Acetaminophen (Tylenol) 650 mg RECTAL NOW ONE Stop: 09/13/16 08:57 Last Admin: 09/13/16 08:56 Dose: 650 mg Al Hydroxide/Mg Hydroxide (Mag-Al Plus) 30 ml PO QID PRN PRN Reason: Abdominal Pain Divalproex Sodium (Depakote Er) 750 mg PO BEDTIME [facility] Duloxetine HCl (Cymbalta) 30 mg PO DAILY [facility] Enoxaparin Sodium (Lovenox) 30 mg SUBCUT Q24H [facility] Last Admin: 09/13/16 14:45 Dose: Not Given Gabapentin (Neurontin) 300 mg PO TID [facility] Clindamycin Phosphate 600 mg/ (Premix) 50 mls @ 50 mls/hr IV ONETIME ONE Stop: 09/13/16 09:03 Last Admin: 09/13/16 10:09 Dose: 50 mls/hr Clindamycin Phosphate 600 mg/ (Premix) 50 mls @ 100 mls/hr IV Q8H [facility] Last Admin: 09/13/16 10:11 Dose: Not Given Levofloxacin/Dextrose 500 mg/ (Premix) 100 mls @ 100 mls/hr IV Q24H [facility] Last Admin: 09/13/16 09:05 Dose: 100 mls/hr Sodium Chloride (Normal Saline) Confirm Administered Dose 1,000 mls @ as directed .ROUTE .STK-MED ONE Stop: 09/13/16 09:16 Last Admin: 09/13/16 11:02 Dose: Not Given Levofloxacin/Dextrose 500 mg/ (Premix) 100 mls @ 100 mls/hr IV Q24H [facility] Last Admin: 09/15/16 07:41 Dose: 100 mls/hr Levalbuterol HCl (Xopenex) 1.25 mg NEB ONETIME ONE Stop: 09/13/16 08:19 Last Admin: 09/13/16 08:22 Dose: 1.25 mg Levalbuterol HCl (Xopenex) 1.25 mg NEB QIDRT [facility] Stop: 09/14/16 11:00 Last Admin: 09/14/16 09:09 Dose: 1.25 mg Lorazepam (Ativan) Confirm Administered Dose 2 mg .ROUTE .STK-MED ONE Stop: 09/13/16 08:23 Last Admin: 09/13/16 10:11 Dose: Not Given Lorazepam (Ativan) 1 mg IVPUSH ONETIME ONE Stop: 09/13/16 08:46 Last Admin: 09/13/16 08:45 Dose: 1 mg Lorazepam (Ativan) 0.5 mg PO BID PRN PRN Reason: Anxiety Methylprednisolone Sodium Succinate (Solu-Medrol) 125 mg IVPUSH Q8H [facility] Last Admin: 09/13/16 09:03 Dose: 125 mg Methylprednisolone Sodium Succinate (Solu-Medrol) 125 mg IVPUSH Q8H [facility] Last Admin: 09/14/16 07:43 Dose: 125 mg Methylprednisolone Sodium Succinate (Solu-Medrol) 125 mg IVPUSH Q12H [facility] Last Admin: 09/15/16 07:37 Dose: 125 mg Non-Formulary Medication (Baclofen [Baclofen]) 90 mg PO TID [facility] Non-Formulary Medication (Duloxetine [Cymbalta]) 60 mg PO BEDTIME [facility] Non-Formulary Medication (Divalproex Sodium [Depakote Er]) 500 mg PO DAILY [facility] Non-Formulary Medication (Hydrocodone/Acetaminophen [[place] 10-325 Tablet]) 1 tab PO BID PRN PRN Reason: Pain Non-Formulary Medication (Lactulose [Lactulose]) 30 ml PO DAILY PRN PRN Reason: Constipation Non-Formulary Medication (Ondansetron Hcl) 4 mg PO Q4H PRN PRN Reason: Nausea Non-Formulary Medication (Azathioprine [Imuran]) 150 mg PO DAILY [facility] Polyethylene Glycol (Miralax) 17 gm PO DAILY [facility] - Exam General: alert, other (hallucinating. Has intermittent psychosis). No: oriented HEENT: Mucous membr. moist/pink Lungs: Decreased breath sounds Cardiovascular: Regular Rate, Regular Rhythm Abdomen: bowel sounds present, soft, no tenderness Extremities: no edema Skin: warm, dry Neurological: no new focal deficit - Problem List & Annotations (1) Aspirated gastric contents in lower respiratory tract SNOMED Code(s): 229318781 Code(s): XET7003 - Status: Acute Priority: High Current Visit: Yes (2) Comfort measures only status SNOMED Code(s): 57799688445842 Code(s): Z51.5 - ENCOUNTER FOR PALLIATIVE CARE Status: Acute Priority: High Current Visit: Yes - Problem List Review Problem List Initiated/Reviewed/Updated: Yes - My Orders Last 24 Hours: My Active Orders 09/14/16 08:57 Head wo Cont [CT] Stat 09/15/16 08:00 Scopolamine [Transderm-Scop] 1.5 mg TOP Q72H 09/15/16 Lunch Thickened Liquids [DIET] 09/16/16 08:00 methylPREDNISolone Sod Succ [Solu-MEDROL] 125 mg IVPUSH Q24H - Assessment Assessment:: Aspiration Pneumonia - Plan Plan:: Patient does answer some questions appropriately today. Most information today gleaned from family. Prior to this winter, patient was alert, conversive and doing well. Did have an aide that would come in to his 4x per day but over the last few months, his weakness increased and has had 2 falls. Do not recall any specific head trauma however they do relate he had a definite change of status since Tuesday night after admission to the [facility]. Had been in the hospital in [place] for 4 weeks and has regressed during that time. Has had several issues now with aspiration pneumonia but patient has insisted on being provided with a fairly regular diet despite it causing him problems. Sister relates that he did pass a swallow study in [place]. Labs today are stable. WBC 10.2. Hemoglobin stable. Initial blood cultures negative. Will repeat labs in am. Obtain a CT scan of the head today and follow. Hold oral intake at this time. Possibly initiate fluids tomorrow. Family aware and agrees with plan. 09-15-2016 Patient is alert this am. Restless all night. Hallucinating at times. Does answer questions appropriately at times when directed to him but otherwise, random conversation is inappropriate. Family at bedside. Discussed again nutrition. Patient does express concern about choking/coughing which causes more spasms but when asked again, would like to try. Long conversation held again today with family. Family would like to start with thickened liquids and they are well aware of the aspiration risk. Family feels it is very difficult to have him not eat without any form of nutrition though as he refuses a feeding tube as well. He has had sips of thickened water with his meds today and has thus far done well. Labs noted this am. Hemoglobin has dropped so will check FOB. Has had minimal urine output noted in catheter. Continue IV fluids and monitor. Creatinine remains stable. Patient has had success with a scopolamine patch in the past to help with postnasal drainage which family reports that his provider in [place] felt it helped his aspiration risk so ordered today. Will stop Levaquin as lung clear. Repeat chest xray tomorrow. Inappropriate for discharge at this time.
[2016-09-15] MEDS: Enoxaparin 40 MG/0.4 ML Syringe SUBCUT SCH (15:44)
[2016-09-15] MEDS: Sodium Chloride 0.9% 1,000 ML IV SCH (19:37)
[2016-09-16] MEDS: Clindamycin Phosphate in D5W 600 MG in Premix Bag 1 BAG IV SCH ×6 (01:10→16:21)
[2016-09-16] MEDS: Pantoprazole 40 MG Vial IVPUSH SCH (07:36)
[2016-09-16] MEDS: DULoxetine 30 MG Cap PO SCH ×2 (07:44→20:39)
[2016-09-16] MEDS: Divalproex Sodium 250 MG Tab.ER PO SCH ×2 (07:44→20:38)
[2016-09-16] MEDS: Gabapentin 300 MG Cap PO SCH ×3 (07:45→20:39)
[2016-09-16] MEDS ORDERED: methylPREDNISolone Sodium Succinate 125 MG/2 ML SDV IVPUSH SCH (08:00)
[2016-09-16] MEDS: HYDROmorphone 1 MG/ML Syringe IVPUSH PRN (09:06)
[2016-09-16] MEDS: Albuterol 0.083% 2.5 MG/3 ML Neb Soln INH SCH ×4 (09:27→20:39)
--- NOTE | 2016-09-16 11:00 | PN ---
DATE: 09/16/2016 S: Mr. Mcdaniel continues to do well. He has not spiked a temp and has now been weaned off O2. For the most part, he is much more stable. Both Lea and Ronni had long conversations with family about his recurrent aspiration. Initially, they thought they would just put him back on a regular diet but at this time they are agreeable to starting him on thickened liquids and advanced, and we are going to try that today. He is without complaint. O: GENERAL: He is pleasant and cooperative. HEENT: Benign. NECK: Supple. Veins are flat. LUNGS: Sounds are still with some expiratory rhonchi, but for the most part, no audible rales, pretty adequate air movement throughout. CARDIAC: Tones are regular. ABDOMEN: Appears soft with good bowel sounds. No peripheral edema is seen. ASSESSMENT: 1. ASPIRATION PNEUMONIA, RECURRENT. 2. CEREBRAL PALSY. P: We will try him on a pureed diet today and see how he responds. Family are very cooperative with his overall cares and at this time they have made it very clear that they do not want anything extremely aggressive done including a feeding tube etc. His hemoglobins had dropped on admit, so we are going to recheck the H and H this morning and his drinking to the point where we can TKO his fluids. STEPHANIE/POOJA /[id number]
[2016-09-16] MEDS: Enoxaparin 40 MG/0.4 ML Syringe SUBCUT SCH (16:24)
[2016-09-16] MEDS: Acetaminophen 500 MG Tab PO PRN (20:47)
[2016-09-17] MEDS: Clindamycin Phosphate in D5W 600 MG in Premix Bag 1 BAG IV SCH ×4 (00:53→09:34)
[2016-09-17] MEDS ORDERED: methylPREDNISolone Sodium Succinate 125 MG/2 ML SDV IVPUSH SCH (08:00)
[2016-09-17] MEDS: DULoxetine 30 MG Cap PO SCH (09:09)
[2016-09-17] MEDS: Gabapentin 300 MG Cap PO SCH ×2 (09:09→16:42)
[2016-09-17] MEDS: Pantoprazole 40 MG Vial IVPUSH SCH (09:10)
[2016-09-17] MEDS: Divalproex Sodium 250 MG Tab.ER PO SCH (09:10)
[2016-09-17] MEDS: Albuterol 0.083% 2.5 MG/3 ML Neb Soln INH SCH ×2 (09:25→13:20)
[2016-09-17] MEDS: Acetaminophen 500 MG Tab PO PRN (09:33)
[2016-09-17 11:59] VITALS: BP 125/73
--- NOTE | 2016-09-20 06:59 | DISCH ---
ADMISSION DIAGNOSES: 1. Aspiration pneumonia. 2. History of cerebral palsy. 3. Seizure disorder. HISTORY: The patient is a 61-year-old male from the [facility] with a known history of cerebral palsy. He was recently in their facility for upwards of a month for recurrent aspiration pneumonia. He has had kind of a decline in his overall functional status. He was starting to have more issues with difficulty with oral intake, recurrent aspiration, and fatigue. He was ultimately put in the hospital for recurrent aspiration. After he apparently cleared, he was sent to [facility] for admission for long- term cares and within about a day of being there, he aspirated, started coughing, gaging, was hypoxic and was brought to our facility via ambulance for suspected recurrent aspiration. He was evaluated in the emergency room by a locum, given appropriate cares, and admitted to the hospital for IV antibiotics, steroids, and fluids. HOSPITAL COURSE: The patient has been relatively stable since here. We have been able to wean him off O2. He has not been spiking any temperature. Initially, he was on Levaquin and Cleocin, now he is only on Cleocin and doing well. We have taken him down on his IV steroids and for the most part, he has tolerated this well. He continues to have issues with aspiration. He has made it very clear and can make his own decisions that he does not want a feeding tube. Initially, the family had wanted him to have a regular diet, but now we do have him on a pureed diet with thickened liquids and he seems to be tolerating that well. He needs further completion of his IV antibiotics. We are going to do routine measures including keep the head of the bed elevated, keeping him on IV Protonix. We will do our best to prevent further aspiration. Family is very understanding that he has declined and they do not want anything aggressive done. He is a DNR at this point. 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 They are concerned because he has had ongoing issues with fatigue since this was diagnosed and he seems to be declining in general. I talked to him about further evaluation. I do think it is appropriate to do CT scan of the chest, abdomen, and pelvis given his recent history and they are agreeable to that. We will ultimately put him in swing bed. Continue to monitor him closely and they are hoping to have him placed in [place] when and if this course resolves and they can get him lockstitch back maker to home. COMPLICATIONS: Complications during this stay were none. CONSULTATIONS: RT. DISPOSITION: Transfer to swing bed. HARMAN /[id number]
== END 2016-09-17 14:09 | disposition swing bed (61) | DRG 179 ==
LOC: CC.ED 07:20 → UNDOADMIN 09:41 → CC.MS 09:41 → UNDOADMIN 10:03
PROVIDERS: ADMIT Family Medicine; ATTEND Family Medicine
DX: J69.0 Pneumonitis due to inhalation of food and vomit (principal); G80.9 Cerebral palsy, unspecified; R06.02 Shortness of breath; N50.9 Disorder of male genital organs, unspecified; R51 Headache; G40.909 Epilepsy, unspecified, not intractable, without status epilepticus; Z66 Do not resuscitate
CPT/HCPCS: 36415; 51702; 71010; 80053; 83880; 85025; 86140; 87040 ×2; 87070; 87205; 93005; 93010; 96365; 99285; A9270; J1956; J2060; J2930; 36600; 70450; 71260; 74177; 80048; 80164; 81001; 82270; 82803; 84443; 85014; 85018; 94640; 94640-76; 94760; 94761; 96375; C9113; J1170; J1650; J7030; J7620-GY; Q9967

== ENCOUNTER 2016-09-17 14:21 | Inpatient (IN) | payer MEDICARE, MEDICAID ==
[2016-09-17] MEDS ORDERED: Acetaminophen 650 MG Supp RECTAL PRN (14:25)
[2016-09-17] MEDS ORDERED: Sodium Chloride 0.9% 10 ML Syringe FLUSH PRN (14:25)
[2016-09-17] MEDS ORDERED: Albuterol/Ipratropium 3.0-0.5 MG/3 ML Neb Soln INH PRN (14:29)
[2016-09-17] MEDS: Clindamycin Phosphate in D5W 600 MG in Premix Bag 1 BAG IV SCH ×2 (17:24)
[2016-09-17] MEDS: Enoxaparin 40 MG/0.4 ML Syringe SUBCUT SCH (17:25)
[2016-09-17] MEDS: Divalproex Sodium 250 MG Tab.ER PO SCH (20:11)
[2016-09-17] MEDS: Gabapentin 300 MG Cap PO SCH (20:12)
[2016-09-17] MEDS: DULoxetine 30 MG Cap PO SCH (20:12)
[2016-09-17] MEDS: Acetaminophen/HYDROcodone 325-5 MG Tab PO PRN (20:14)
[2016-09-17] MEDS ORDERED: Menthol/Zinc Oxide Ointment 113 GM Tube TOP PRN (20:30)
[2016-09-17] MEDS: Albuterol 0.083% 2.5 MG/3 ML Neb Soln NEB SCH (21:39)
[2016-09-18] MEDS: Clindamycin Phosphate in D5W 600 MG in Premix Bag 1 BAG IV SCH ×6 (00:14→16:00)
[2016-09-18] MEDS: Acetaminophen 325 MG Tab PO PRN ×2 (00:32→20:59)
[2016-09-18] MEDS: Pantoprazole 40 MG Vial IVPUSH SCH (07:51)
[2016-09-18] MEDS: Scopolamine 1.5 MG Transdermal Patch TOP SCH (07:52)
[2016-09-18] MEDS: Ondansetron 4 MG Tab.DIS PO PRN (08:00)
[2016-09-18] MEDS: Albuterol 0.083% 2.5 MG/3 ML Neb Soln NEB SCH ×4 (11:55→20:59)
[2016-09-18] MEDS: Gabapentin 300 MG Cap PO SCH ×3 (11:56→19:39)
[2016-09-18] MEDS: Divalproex Sodium 250 MG Tab.ER PO SCH ×2 (12:26→19:38)
[2016-09-18] MEDS: DULoxetine 30 MG Cap PO SCH ×2 (12:26→19:39)
[2016-09-18] MEDS: Ondansetron 4 MG/2 ML SDV IVPUSH PRN (12:27)
[2016-09-18] MEDS: Polyethylene Glycol 3350 Powder 17 GM Packet PO SCH (12:27)
[2016-09-18] MEDS: Acetaminophen/HYDROcodone 325-5 MG Tab PO PRN (15:58)
[2016-09-18] MEDS: Enoxaparin 40 MG/0.4 ML Syringe SUBCUT SCH (16:00)
[2016-09-19] MEDS: Clindamycin Phosphate in D5W 600 MG in Premix Bag 1 BAG IV SCH ×6 (00:11→15:09)
[2016-09-19] MEDS: Acetaminophen/HYDROcodone 325-5 MG Tab PO PRN ×3 (04:52→23:13)
[2016-09-19] MEDS: Pantoprazole 40 MG Vial IVPUSH SCH (08:23)
[2016-09-19] MEDS: Ondansetron 4 MG/2 ML SDV IVPUSH PRN ×2 (08:23→11:20)
[2016-09-19] MEDS: Acetaminophen 325 MG Tab PO PRN (11:21)
[2016-09-19] MEDS: DULoxetine 30 MG Cap PO SCH ×2 (12:13→19:35)
[2016-09-19] MEDS: Divalproex Sodium 250 MG Tab.ER PO SCH ×2 (12:13→19:35)
[2016-09-19] MEDS: Polyethylene Glycol 3350 Powder 17 GM Packet PO SCH (12:13)
[2016-09-19] MEDS: Albuterol 0.083% 2.5 MG/3 ML Neb Soln NEB SCH ×4 (12:14→21:03)
[2016-09-19] MEDS: Gabapentin 300 MG Cap PO SCH ×3 (12:14→19:35)
[2016-09-19] MEDS: Enoxaparin 40 MG/0.4 ML Syringe SUBCUT SCH (15:10)
[2016-09-20] MEDS: Clindamycin Phosphate in D5W 600 MG in Premix Bag 1 BAG IV SCH ×6 (00:12→16:30)
[2016-09-20] MEDS: Gabapentin 300 MG Cap PO SCH ×3 (07:48→19:49)
[2016-09-20] MEDS: Divalproex Sodium 250 MG Tab.ER PO SCH ×2 (07:48→19:48)
[2016-09-20] MEDS: DULoxetine 30 MG Cap PO SCH ×2 (07:48→19:48)
[2016-09-20] MEDS: Polyethylene Glycol 3350 Powder 17 GM Packet PO SCH (07:48)
[2016-09-20] MEDS: Pantoprazole 40 MG Vial IVPUSH SCH (07:49)
[2016-09-20 08:12] LABS: CHLORIDE,CL 105 mEq/L (98-106); SODIUM,NA 141 mEq/L (136-145)
[2016-09-20] MEDS: Albuterol 0.083% 2.5 MG/3 ML Neb Soln NEB SCH ×4 (09:19→21:16)
[2016-09-20] MEDS: Acetaminophen/HYDROcodone 325-5 MG Tab PO PRN ×2 (12:53→19:02)
[2016-09-20] MEDS: Enoxaparin 40 MG/0.4 ML Syringe SUBCUT SCH (16:30)
[2016-09-20] MEDS: Ondansetron 4 MG Tab.DIS PO PRN (19:05)
[2016-09-21] MEDS: Clindamycin Phosphate in D5W 600 MG in Premix Bag 1 BAG IV SCH ×8 (00:12→23:26)
[2016-09-21] MEDS: Acetaminophen 325 MG Tab PO PRN (00:13)
[2016-09-21] MEDS: Pantoprazole 40 MG Vial IVPUSH SCH (07:14)
[2016-09-21] MEDS: Scopolamine 1.5 MG Transdermal Patch TOP SCH (07:14)
[2016-09-21] MEDS: Divalproex Sodium 250 MG Tab.ER PO SCH ×2 (07:15→19:51)
[2016-09-21] MEDS: DULoxetine 30 MG Cap PO SCH ×2 (07:15→19:52)
[2016-09-21] MEDS: Polyethylene Glycol 3350 Powder 17 GM Packet PO SCH (07:15)
[2016-09-21] MEDS: Gabapentin 300 MG Cap PO SCH ×3 (07:15→19:52)
[2016-09-21 07:28] LABS: CHLORIDE,CL 106 mEq/L (98-106); SODIUM,NA 141 mEq/L (136-145)
[2016-09-21] MEDS: Potassium Chloride 10 MEQ Tab.ER PO SCH (09:00)
[2016-09-21] MEDS: Albuterol 0.083% 2.5 MG/3 ML Neb Soln NEB SCH ×4 (09:23→20:36)
[2016-09-21] MEDS: Acetaminophen/HYDROcodone 325-5 MG Tab PO PRN ×2 (11:14→19:50)
[2016-09-21] MEDS: Enoxaparin 40 MG/0.4 ML Syringe SUBCUT SCH (16:37)
[2016-09-22] MEDS: Ondansetron 4 MG/2 ML SDV IVPUSH PRN (00:09)
[2016-09-22] MEDS: Acetaminophen 325 MG Tab PO PRN ×2 (05:27→18:39)
[2016-09-22] MEDS: Divalproex Sodium 250 MG Tab.ER PO SCH ×2 (08:20→19:28)
[2016-09-22] MEDS: Potassium Chloride 10 MEQ Tab.ER PO SCH ×2 (08:21→10:07)
[2016-09-22] MEDS: DULoxetine 30 MG Cap PO SCH ×2 (08:21→19:28)
[2016-09-22] MEDS: Polyethylene Glycol 3350 Powder 17 GM Packet PO SCH (08:22)
[2016-09-22] MEDS: Gabapentin 300 MG Cap PO SCH ×3 (08:22→19:28)
[2016-09-22] MEDS: Pantoprazole 40 MG Vial IVPUSH SCH (08:23)
[2016-09-22] MEDS: Clindamycin Phosphate in D5W 600 MG in Premix Bag 1 BAG IV SCH ×6 (08:29→23:50)
[2016-09-22] MEDS: Albuterol 0.083% 2.5 MG/3 ML Neb Soln NEB SCH ×4 (09:20→20:42)
[2016-09-22] MEDS: Acetaminophen/HYDROcodone 325-5 MG Tab PO PRN ×2 (10:00→21:09)
[2016-09-22] MEDS: Enoxaparin 40 MG/0.4 ML Syringe SUBCUT SCH (15:30)
[2016-09-22] MEDS: Temazepam 15 MG Cap PO PRN (23:50)
[2016-09-23] MEDS: Clindamycin Phosphate in D5W 600 MG in Premix Bag 1 BAG IV SCH ×4 (10:01→16:35)
[2016-09-23] MEDS: Gabapentin 300 MG Cap PO SCH ×3 (11:07→19:28)
[2016-09-23] MEDS: Albuterol 0.083% 2.5 MG/3 ML Neb Soln NEB SCH ×4 (11:07→20:32)
[2016-09-23] MEDS: Pantoprazole 40 MG Vial IVPUSH SCH (11:07)
[2016-09-23] MEDS: Potassium Chloride 10 MEQ Tab.ER PO SCH (11:44)
[2016-09-23] MEDS: Polyethylene Glycol 3350 Powder 17 GM Packet PO SCH (11:44)
[2016-09-23] MEDS: DULoxetine 30 MG Cap PO SCH ×2 (11:44→19:27)
[2016-09-23] MEDS: Divalproex Sodium 250 MG Tab.ER PO SCH ×2 (11:44→19:28)
[2016-09-23] MEDS: Acetaminophen/HYDROcodone 325-5 MG Tab PO PRN (14:29)
[2016-09-23] MEDS: Enoxaparin 40 MG/0.4 ML Syringe SUBCUT SCH (16:36)
[2016-09-23] MEDS: Acetaminophen 325 MG Tab PO PRN (20:37)
[2016-09-24] MEDS: Acetaminophen/HYDROcodone 325-5 MG Tab PO PRN ×3 (00:56→19:59)
[2016-09-24] MEDS: Divalproex Sodium 250 MG Tab.ER PO SCH ×2 (09:12→20:01)
[2016-09-24] MEDS: Gabapentin 300 MG Cap PO SCH ×3 (09:12→20:01)
[2016-09-24] MEDS: Potassium Chloride 10 MEQ Tab.ER PO SCH (09:12)
[2016-09-24] MEDS: Clindamycin Phosphate in D5W 600 MG in Premix Bag 1 BAG IV SCH ×6 (09:12→16:31)
[2016-09-24] MEDS: DULoxetine 30 MG Cap PO SCH ×2 (09:13→20:00)
[2016-09-24] MEDS: Scopolamine 1.5 MG Transdermal Patch TOP SCH (09:13)
[2016-09-24] MEDS: Pantoprazole 40 MG Vial IVPUSH SCH (09:13)
[2016-09-24] MEDS: Polyethylene Glycol 3350 Powder 17 GM Packet PO SCH (09:13)
[2016-09-24] MEDS: Albuterol 0.083% 2.5 MG/3 ML Neb Soln NEB SCH ×4 (09:26→20:08)
[2016-09-24] MEDS: Enoxaparin 40 MG/0.4 ML Syringe SUBCUT SCH (16:31)
[2016-09-24] MEDS ORDERED: Acetaminophen/HYDROcodone 325-5 MG Tab PO PRN ×2 (18:46→18:51)
[2016-09-25] MEDS: Temazepam 15 MG Cap PO PRN (00:02)
[2016-09-25] MEDS: Acetaminophen 325 MG Tab PO PRN ×2 (00:02→17:55)
[2016-09-25] MEDS: Pantoprazole 40 MG Tab.CR PO SCH (06:39)
[2016-09-25] MEDS ORDERED: Aluminum Hydroxide/Magnesium Hydroxide/Simethicone Susp 30 ML Cup PO PRN (08:25)
[2016-09-25] MEDS ORDERED: LORazepam 0.5 MG Tab PO PRN (08:25)
[2016-09-25] MEDS ORDERED: traZODone 50 MG Tab PO PRN (08:25)
[2016-09-25] MEDS ORDERED: Non-Formulary Medication 1 Each (Ondansetron Hcl 4 MG) PO PRN (08:25)
[2016-09-25] MEDS: Clindamycin Phosphate in D5W 600 MG in Premix Bag 1 BAG IV SCH ×6 (08:49→15:28)
[2016-09-25] MEDS: Albuterol 0.083% 2.5 MG/3 ML Neb Soln NEB SCH ×4 (11:00→20:29)
[2016-09-25] MEDS: Potassium Chloride 10 MEQ Tab.ER PO SCH (11:00)
[2016-09-25] MEDS: Gabapentin 300 MG Cap PO SCH ×3 (11:00→19:34)
[2016-09-25] MEDS: Polyethylene Glycol 3350 Powder 17 GM Packet PO SCH (11:00)
[2016-09-25] MEDS: DULoxetine 30 MG Cap PO SCH ×2 (11:00→19:33)
[2016-09-25] MEDS: Divalproex Sodium 250 MG Tab.ER PO SCH ×2 (11:00→19:33)
[2016-09-25] MEDS: Baclofen 10 MG Tab PO SCH ×2 (13:48→19:34)
[2016-09-25] MEDS: Acetaminophen/HYDROcodone 325-5 MG Tab PO PRN ×2 (15:27→23:17)
[2016-09-25] MEDS: Enoxaparin 40 MG/0.4 ML Syringe SUBCUT SCH (15:27)
[2016-09-26] MEDS: Clindamycin Phosphate in D5W 600 MG in Premix Bag 1 BAG IV SCH ×6 (00:11→16:12)
[2016-09-26] MEDS: Pantoprazole 40 MG Tab.CR PO SCH (06:40)
[2016-09-26] MEDS: Potassium Chloride 10 MEQ Tab.ER PO SCH (08:14)
[2016-09-26] MEDS: Cholecalciferol (Vitamin D3) 1,000 Unit Tab PO SCH (08:14)
[2016-09-26] MEDS: Divalproex Sodium 250 MG Tab.ER PO SCH ×2 (08:15→19:33)
[2016-09-26] MEDS: Gabapentin 300 MG Cap PO SCH ×3 (08:15→19:33)
[2016-09-26] MEDS: DULoxetine 30 MG Cap PO SCH ×2 (08:15→19:33)
[2016-09-26] MEDS: Baclofen 10 MG Tab PO SCH ×3 (08:16→19:33)
[2016-09-26] MEDS: Albuterol 0.083% 2.5 MG/3 ML Neb Soln NEB SCH ×4 (08:20→21:10)
[2016-09-26] MEDS: Acetaminophen/HYDROcodone 325-5 MG Tab PO PRN (08:48)
[2016-09-26] MEDS: Polyethylene Glycol 3350 Powder 17 GM Packet PO SCH (08:51)
[2016-09-26] MEDS: Acetaminophen 325 MG Tab PO PRN (16:12)
[2016-09-26] MEDS: Enoxaparin 40 MG/0.4 ML Syringe SUBCUT SCH (16:12)
[2016-09-27] MEDS: Clindamycin Phosphate in D5W 600 MG in Premix Bag 1 BAG IV SCH ×8 (00:03→23:12)
[2016-09-27] MEDS: Pantoprazole 40 MG Tab.CR PO SCH (06:43)
[2016-09-27 07:29] LABS: CHLORIDE,CL 105 mEq/L (98-106); SODIUM,NA 141 mEq/L (136-145)
[2016-09-27] MEDS: Gabapentin 300 MG Cap PO SCH ×3 (07:48→19:52)
[2016-09-27] MEDS: Cholecalciferol (Vitamin D3) 1,000 Unit Tab PO SCH (07:48)
[2016-09-27] MEDS: Divalproex Sodium 250 MG Tab.ER PO SCH ×2 (07:48→19:49)
[2016-09-27] MEDS: Baclofen 10 MG Tab PO SCH ×3 (07:49→19:52)
[2016-09-27] MEDS: DULoxetine 30 MG Cap PO SCH ×2 (07:49→19:49)
[2016-09-27] MEDS: Potassium Chloride 10 MEQ Tab.ER PO SCH (07:49)
[2016-09-27] MEDS: Polyethylene Glycol 3350 Powder 17 GM Packet PO SCH ×2 (07:50→07:51)
[2016-09-27] MEDS: Scopolamine 1.5 MG Transdermal Patch TOP SCH (07:51)
[2016-09-27] MEDS: Albuterol 0.083% 2.5 MG/3 ML Neb Soln NEB SCH ×4 (09:07→20:01)
[2016-09-27] MEDS: Acetaminophen/HYDROcodone 325-5 MG Tab PO PRN ×2 (10:46→20:23)
[2016-09-27] MEDS: Enoxaparin 40 MG/0.4 ML Syringe SUBCUT SCH (16:11)
[2016-09-28] MEDS: Pantoprazole 40 MG Tab.CR PO SCH (06:21)
[2016-09-28] MEDS: Clindamycin Phosphate in D5W 600 MG in Premix Bag 1 BAG IV SCH ×6 (07:55→23:48)
[2016-09-28] MEDS: DULoxetine 30 MG Cap PO SCH ×2 (07:56→19:29)
[2016-09-28] MEDS: Baclofen 10 MG Tab PO SCH ×3 (07:57→19:24)
[2016-09-28] MEDS: Divalproex Sodium 250 MG Tab.ER PO SCH ×2 (07:57→19:24)
[2016-09-28] MEDS: Potassium Chloride 10 MEQ Tab.ER PO SCH (07:57)
[2016-09-28] MEDS: Gabapentin 300 MG Cap PO SCH ×3 (07:58→19:26)
[2016-09-28] MEDS: Cholecalciferol (Vitamin D3) 1,000 Unit Tab PO SCH (07:58)
[2016-09-28] MEDS: Polyethylene Glycol 3350 Powder 17 GM Packet PO SCH (07:58)
[2016-09-28] MEDS: Albuterol 0.083% 2.5 MG/3 ML Neb Soln NEB SCH ×4 (09:13→20:15)
[2016-09-28] MEDS: Nystatin Topical Powder 15 GM Bottle TOP SCH ×2 (09:38→19:22)
[2016-09-28] MEDS: Enoxaparin 40 MG/0.4 ML Syringe SUBCUT SCH (16:06)
[2016-09-28] MEDS: Acetaminophen/HYDROcodone 325-5 MG Tab PO PRN (19:23)
[2016-09-29] MEDS: Pantoprazole 40 MG Tab.CR PO SCH (06:57)
[2016-09-29 07:35] VITALS: BP 118/82
[2016-09-29] MEDS: Clindamycin Phosphate in D5W 600 MG in Premix Bag 1 BAG IV SCH ×2 (08:08)
[2016-09-29] MEDS: Divalproex Sodium 250 MG Tab.ER PO SCH (09:05)
[2016-09-29] MEDS: Albuterol 0.083% 2.5 MG/3 ML Neb Soln NEB SCH (09:27)
[2016-09-29] MEDS ORDERED: LORazepam 2 MG/ML Syringe IVPUSH ONE (10:00)
[2016-09-29] MEDS: Baclofen 10 MG Tab PO SCH (10:50)
[2016-09-29] MEDS: Polyethylene Glycol 3350 Powder 17 GM Packet PO SCH (10:50)
[2016-09-29] MEDS: Nystatin Topical Powder 15 GM Bottle TOP SCH (10:50)
[2016-09-29] MEDS: DULoxetine 30 MG Cap PO SCH (10:50)
[2016-09-29] MEDS: Gabapentin 300 MG Cap PO SCH (10:50)
[2016-09-29] MEDS: Potassium Chloride 10 MEQ Tab.ER PO SCH (10:50)
[2016-09-29] MEDS: Cholecalciferol (Vitamin D3) 1,000 Unit Tab PO SCH (10:51)
--- NOTE | 2016-09-30 07:21 | DISCH ---
CONSULTING PHYSICIAN: Dr. Caceres. CONDITION ON DISCHARGE: Fair. FINAL DIAGNOSES: 1. Schizoaffective disorder. 2. Tinea cruris. 3. Aspiration pneumonia. HISTORY OF PRESENT ILLNESS: Allyson is a 61-year-old male who was admitted to the hospital after having been running low-grade fevers and with some difficulty breathing from a local intermediate. He has had multiple bouts of aspiration pneumonia over the last few months. He did present in some respiratory distress. LABORATORY DATA: Last CBC on September 20 showed a white blood count of 7000, hemoglobin was 10.3 with hematocrit of 30.9%, and platelets was 110,000. Please review attached documentation for complete details. Blood gas was completed on the 13 of September pH is 7.34 with a pCO2 of 47, PO2 of 126, O2 saturation was 99%. Basic metabolic panels completed on the 27 of September with the potassium normalized at 3.9, sodium of 141, chloride 105, creatinine was 0.8 with a BUN of 9. TSH on the 17 of September was 1.25, proBNP on the 13 of September was 594 with a CRP of 2 completed on the 27 of September, AST of 10 with an ALT of 8, and alkaline phosphatase of 36, calcium was 7.9. Urinalysis was completed on the 13 of September that did show specific gravity of 1.016, 30 mg/dL protein, 100 mg/dL of glucose, trace ketones, trace of blood, moderate amount of bilirubin with few bacteria, and moderate amount of mucus. Valproic acid level complete on the 17 of September was 62. HOSPITAL COURSE: The patient has been on IV clindamycin since admission secondary to aspiration pneumonia. Blood cultures were completed with no growth noted. Sputum culture was completed on the 13 of September as well with a gram- positive cocci, final culture coming back as light growth normal shruti. The patient does have a history of cerebral palsy with history of bipolar disorder. He has been on Depakote and Cymbalta secondary to depression as well/bipolar disorder. He has been quite combative and having multiple bouts of hallucinations while he has been hospitalized. The patient looked upon going back to intermediate, however intermediate will not consider accepting the patient secondary to his combative behaviors. Dr. Anderson has been taking care of Allyson during his stay, which he did contact [facility] for [facility] admission for further evaluation. DISCHARGE MEDICATIONS: Please see medication list. DISCHARGE INSTRUCTIONS: Doctor to doctor consult was completed with Dr. Caceres this morning. The patient will be going to the [facility] via BLS transfer. PHYSICAL EXAMINATION: VITAL SIGNS: At 07:34 this morning showed blood pressure 118/82, O2 saturation was 93% to 95% on room air, respiratory rate of 18, pulse of 108 with a temp of 98.2. GENERAL: Allyson is resting in his hospital bed upon my entrance. He does have somewhat appear to be in somewhat of a stuporous state. Not answering questions. HEENT: Grossly unremarkable. LUNGS: Clear to auscultation. He is to have some upper airway noises noted. However, I do not hear any rhonchi, rales, or wheezing. CARDIAC: Regular. No murmurs are noted. ABDOMEN: Soft. He does have a large healed vertical incision. Bowel sounds are present. Normoactive. EXTREMITIES: He does have stasis dermatitis noted with worse on the right than the left. He also does have an IV placed in the left tib-fib region. No signs of any active cellulitis. No increase in warmth. No pedal edema is noted. DISPOSITION: Discharge to [facility] in [place] via BLS with Dr. Caceres as accepting physician. KRISTIAN/POOJA /[id number] MTDD
== END 2016-09-29 11:05 | DRG 179 ==
LOC: UNDOADMIN 14:24 → CC.MS 14:24 → UNDOADMIN 14:25 → CC.MS 14:26 → UNDODISIN 09-29 11:05
PROVIDERS: ADMIT Family Medicine; ATTEND Family Medicine
DX: J69.0 Pneumonitis due to inhalation of food and vomit (principal); B35.6 Tinea cruris; G80.9 Cerebral palsy, unspecified; F31.9 Bipolar disorder, unspecified; G40.909 Epilepsy, unspecified, not intractable, without status epilepticus
CPT/HCPCS: 36415; 71010; 80048; 80053; 83735; 85025; 86140; 94640; 94640-76; 94760; 97162-GP; A9270-GY; C9113; J1650; J2060; J2405; J7620-GY